=== PATIENT | female | born 2005 | race Two or more races ===

== ENCOUNTER 2024-08-03 11:31 | Outpatient (CLI) | payer OTHER | END 2024-08-03 11:33 | disposition home or self-care (01) | LOC: PRENATAL 11:31 | PROVIDERS: ATTEND Obstetrics & Gynecology Maternal & Fetal Medicine | DX: O35.3XX0 Maternal care for (suspected) damage to fetus from viral disease in mother, not applicable or unspecified (principal); O44.00 Complete placenta previa NOS or without hemorrhage, unspecified trimester; Z3A.19 19 weeks gestation of pregnancy ==

== ENCOUNTER → 2024-10-29 09:09 | Outpatient (CLI) | payer OTHER | END | disposition home or self-care (01) | LOC: PRENATAL 09:09 | PROVIDERS: ATTEND Obstetrics & Gynecology Maternal & Fetal Medicine | DX: O26.849 Uterine size-date discrepancy, unspecified trimester (principal); O36.8199 Decreased fetal movements, unspecified trimester, other fetus; Z3A.32 32 weeks gestation of pregnancy ==

== ENCOUNTER 2024-12-09 14:15 | Inpatient (IN) | payer OTHER ==
[~2024-12-09] VITALS: Ht 162.6 cm; Wt 77.1 kg
[2024-12-09 17:19] LABS: HEMATOCRIT 40.4 % (36.0-45.00); HEMOGLOBIN 14.3 g/dL (12.0-15.00); MEAN CELL VOLUME 85.4 fL (80.00-100.00); MEAN CORPUSCULAR HEMOGLOBIN 30.2 pg (27.00-32.0); MEAN CORPUSCULAR HGB CONC 35.3 g/dl (32.0-36.0); PLATELET COUNT 194 K/uL (150-450); RED BLOOD COUNT 4.73 M/uL (4.00-6.00); RED CELL DISTRIBUTION WIDTH 13.4 % (11.5-14.5); URINE APPEARANCE Cloudy; URINE BILIRRUBIN Negative (NEGATIVE); URINE BLOOD Negative; URINE COLOR Yellow; URINE KETONE Negative (NEGATIVE); URINE LEUKOCYTE Moderate; URINE NITRATE Negative; URINE PROTEIN Negative (NEGATIVE); URINE UROBILINOGEN 0.2 E.U./dl
[2024-12-09 17:23] LABS: URINE EPITHELIAL CELLS 104.4 uL (0.0-38.8); URINE RBC 10.3 uL (0.0-20.8); URINE WBC 279.8 uL (0.0-23.2)
[2024-12-09 17:47] LABS: INR 0.97; PARTIAL THROMBOPLASTIN TIME 26.8 SECONDS (22.0-34.0); PROTHROMBIN TIME 10.6 SECONDS (9.0-11.5)
[2024-12-09 17:57] LABS: ALBUMIN 2.7 gm/dL (3.4-5.0); BILIRUBIN TOTAL 0.78 mg/dL (0.3-1.2); CALCIUM 8.9 mg/dL (8.5-10.1); CREATININE SERUM 0.52 mg/dL (0.55-1.02); GFR 148.86; GLOBULINA 3.5 G/DL (2.4-3.5); POTASSIUM 3.93 mEq/L (3.5-5.1); TOTAL PROTEIN 6.2 gm/dL (6.4-8.2)
[2024-12-09 18:06] LABS: URINE BACTERIA > 9821.5 uL (0.0-1933); URINE CAST 0.29 uL (0.0-1.40); URINE GLUCOSE 100 MG/DL (NEGATIVE)
[2024-12-25] VITALS (13 sets, daily range): BP systolic 113–139; BP diastolic 71–82
[2024-12-25] MEDS ORDERED: PRENATAL TABLE1 EAC4 PO (00:20)
[2024-12-25] MEDS ORDERED: CLARITIN10 MG PO (00:20)
[2024-12-25] MEDS ORDERED: RINGERS SOLUTION,LACTATED 1,000 ML IV SCH (00:30)
[2024-12-25 01:30] LABS: HEMATOCRIT 38.7 % (36.0-45.00); HEMOGLOBIN 13.6 g/dL (12.0-15.00); MEAN CELL VOLUME 85.6 fL (80.00-100.00); MEAN CORPUSCULAR HEMOGLOBIN 30.1 pg (27.00-32.0); MEAN CORPUSCULAR HGB CONC 35.2 g/dl (32.0-36.0); PLATELET COUNT 190 K/uL (150-450); RED BLOOD COUNT 4.52 M/uL (4.00-6.00); RED CELL DISTRIBUTION WIDTH 13.6 % (11.5-14.5)
[2024-12-25] MEDS ORDERED: PROMETHAZINE HCL 25 MG/ML AMPUL ONE (01:51)
[2024-12-25] MEDS ORDERED: PROMETHAZINE HCL 25 MG/ML AMPUL IV ONE (02:15)
[2024-12-25] MEDS ORDERED: MEPERIDINE HCL/PF 50 MG/ML VIAL IV ONE (02:15)
[2024-12-25] MEDS ORDERED: MORPHINE SULFATE 4 MG/ML CARTRIDGE IV ONE (06:45)
[2024-12-25] MEDS ORDERED: OXYTOCIN 500 ML IV SCH (08:45)
[2024-12-25] MEDS ORDERED: ERYTHROMYCIN BASE OPHT 1GM EACH TUBE OP ONE ×2 (11:53→15:00)
[2024-12-25] MEDS ORDERED: OXYTOCIN 20 UNITS/1000ML RL PIGGYBAG IV ONE (11:53)
[2024-12-25] MEDS ORDERED: LIDOCAINE HCL 1% 10ML VIAL ONE (11:54)
[2024-12-25] MEDS ORDERED: CHLORHEXIDINE GLUCONATE 120 ML BOTTLE TOP ONE (11:54)
[2024-12-25] MEDS ORDERED: ACETAMINOPHEN 500 MG GEL..CAP PO PRN (14:30)
[2024-12-25] MEDS ORDERED: BENZOCAINE/MENTHOL 90 ML BOTTLE TOP PRN (14:30)
[2024-12-25] MEDS ORDERED: LIDOCAINE HCL 1% 10ML VIAL IJ ONE (15:00)
[2024-12-25] MEDS ORDERED: CHLORHEXIDINE GLUCONATE 120 ML BOTTLE TOP SCH (15:00)
[2024-12-25] MEDS ORDERED: OXYTOCIN 1,000 ML IV SCH (15:00)
[2024-12-26 04:00] VITALS: BP 111/73
[2024-12-26 08:00] VITALS: BP 105/68
[2024-12-26 08:02] LABS: HEMATOCRIT 29.3 % (36.0-45.00); HEMOGLOBIN 10.3 g/dL (12.0-15.00); MEAN CELL VOLUME 86.2 fL (80.00-100.00); MEAN CORPUSCULAR HEMOGLOBIN 30.4 pg (27.00-32.0); MEAN CORPUSCULAR HGB CONC 35.3 g/dl (32.0-36.0); PLATELET COUNT 151 K/uL (150-450); RED BLOOD COUNT 3.39 M/uL (4.00-6.00); RED CELL DISTRIBUTION WIDTH 13.3 % (11.5-14.5)
[2024-12-26] MEDS ORDERED: PNV,CALCIUM 72/IRON/FOLIC ACID 1 TAB TABLET PO SCH (09:00)
[2024-12-26 16:00] VITALS: BP 109/62
[2024-12-27 00:29] VITALS: BP 115/76
[2024-12-27 08:00] VITALS: BP 106/70
== END 2024-12-27 14:23 | disposition home or self-care (01) | DRG 807 ==
LOC: OB/GYN 12-24 14:15 → LDR 12-25 00:18 → OB/GYN 12-25 14:20 → LDR 12-25 16:07 → OB/GYN 12-25 21:43
PROVIDERS: Student in an Organized Health Care Education/Training Program; ADMIT Obstetrics & Gynecology; ATTEND Obstetrics & Gynecology
PROC: 10E0XZZ Delivery of Products of Conception, External Approach (ICD-10-PCS; principal; 2024-12-25)
PROC: 0W8NXZZ Division of Female Perineum, External Approach (ICD-10-PCS; 2024-12-25)
PROC: 4A1HXCZ Monitoring of Products of Conception, Cardiac Rate, External Approach (ICD-10-PCS; 2024-12-25)
DX: O69.81X0 Labor and delivery complicated by cord around neck, without compression, not applicable or unspecified (principal); Z37.0 Single live birth; Z3A.40 40 weeks gestation of pregnancy